=== PATIENT | female | born 1945 | race Two or more races ===

== ENCOUNTER 2019-11-09 14:40 | Outpatient (CLI) | payer OTHER | END 2019-11-09 14:42 | disposition home or self-care (01) | LOC: RAD 14:40 | PROVIDERS: ATTEND Orthopaedic Surgery | DX: M25.551 Pain in right hip (principal); M54.5 Low back pain; Z96.653 Presence of artificial knee joint, bilateral ==

== ENCOUNTER 2021-01-02 09:10 | Outpatient (CLI) | payer OTHER | END 2021-01-02 09:15 | disposition home or self-care (01) | LOC: PPH VACUNA 09:10 | PROVIDERS: ATTEND Emergency Medicine Pediatric Emergency Medicine | DX: Z23 Encounter for immunization (principal) ==